=== PATIENT | female | born 1965 | race American Indian/Alaskan Native ===

== ENCOUNTER 2017-10-29 22:14 | Emergency (ER) | payer OTHER, MEDICAID ==
[2017-10-29] MEDS ORDERED: NACL 0.9% 500 ML 500 ML IV ONE (22:44)
[2017-10-29] MEDS ORDERED: ASPIRIN PO ONE (22:45)
[2017-10-29] MEDS ORDERED: TYLENOL PO STA (22:45)
[2017-10-29 23:18] LABS: Basophils % (Auto) 0.4 % (0.0-1.8); Eosinophils % (Auto) 0.5 % (0.0-4.3); Hematocrit 40.6 % (30.3-42.9); Hemoglobin 13.2 gm/dl (10.1-14.3); Lymphocytes # (Auto) 0.7 K/mm3 (1.2-5.4); Lymphocytes % (Auto) 9.8 % (13.4-35.0); Mean Corpuscular HGB Conc 32 % (30-34); Mean Corpuscular Hemoglobin 26 pg (28-32); Mean Corpuscular Volume 80 fl (79-97); Monocytes # (Auto) 1.1 K/mm3 (0.0-0.8); Monocytes % (Auto) 15.9 % (0.0-7.3); Red Blood Count 5.06 M/mm3 (3.65-5.03); Red Cell Distribution Width 14.9 % (13.2-15.2)
[2017-10-29 23:19] LABS: Platelet Count 342 K/mm3 (140-440)
--- NOTE | 2017-10-29 23:22 | Emergency Department Report ---
HPI - General Chief Complaint: Chest Pain Time Seen by Provider: 10/29/17 23:03 - HPI HPI: Room 7 Patient is a 52-year-old female presenting with a chief complaint of body aches and weakness. The patient states she awakened this morning her usual state of health. The patient states as the day progressed at work she developed aching all over and began feeling weak with diffuse body aches. Patient also complained of pain in her jaw and feeling cold. Patient states she became nauseous but never vomited. The patient does admit to cough is productive but is uncertain of the color. The patient does admit to rhinorrhea. Patient is to burning chest pain that began this afternoon. Patient is not aware of any sick contacts. Location: [See above] Duration: One day Quality: Aching Severity: Moderate Modifying factors: [see above] Context: [see above] Mode of transportation: [not driving] ED Past Medical Hx - Past Medical History Previous Medical History?: Yes Hx Seizures: Yes (sz like activty) - Surgical History Past Surgical History?: Yes Additional Surgical History: Heart transplant 2012. Defib but removed. tubal ligation - Family History Family history: no significant - Social History Smoking Status: Never Smoker Substance Use Type: None (denies illicit drug use) ED Review of Systems ROS: Stated complaint: FLU SYMPTOMS Other details as noted in HPI Constitutional: chills, fever ENT: other (rhinorrhea) Respiratory: cough Gastrointestinal: nausea. denies: vomiting Musculoskeletal: myalgia Physical Exam - Physical Exam Vital Signs: Vital Signs 10/29/17 22:40 Temperature 102.2 F H Pulse Rate 117 H Respiratory 20 Rate Blood Pressure 133/80 O2 Sat by Pulse 96 Oximetry Physical Exam: GENERAL: The patient is well-developed well-nourished female on a stretcher not appearing to be in acute distress. [] HEENT: Normocephalic. Atraumatic. Extraocular motions are intact. Patient has moist mucous membranes. NECK: Supple. Trachea midline CHEST/LUNGS: Clear to auscultation. There is no respiratory distress noted. HEART/CARDIOVASCULAR: Regular. There is tachycardia. There is no gallop rub or murmur. ABDOMEN: Abdomen is soft, nontender. Patient has normal bowel sounds. There is no abdominal distention. SKIN: There is no rash. There is no diaphoresis. NEURO: The patient is awake, alert, and oriented. The patient is cooperative. The patient has normal speech MUSCULOSKELETAL: There is no evidence of acute injury. ED Course Vital Signs 10/29/17 22:40 Temperature 102.2 F H Pulse Rate 117 H Respiratory 20 Rate Blood Pressure 133/80 O2 Sat by Pulse 96 Oximetry - Consultations Consultation #1: 10/29/17 23:[address] Childers at 22:57. Not a STEMI Consultation #2: 10/30/17 00:55 M[facility]in[facility] requested to contact Dr. Reyna, transplant surgery [facility] 10/30/17 01:[address] Fields ([place] transplant)-will accept patient in transfer ED Medical Decision Making - Lab Data Result diagrams: 10/29/17 22:55 10/29/17 22:55 Laboratory Tests 10/29/17 10/29/17 10/29/17 22:55 22:55 22:55 WBC 6.7 RBC 5.06 H Hgb 13.2 Hct 40.6 MCV 80 MCH 26 L MCHC 32 RDW 14.9 Plt Count 342 Lymph % (Auto) 9.8 L Stewart % (Auto) 15.9 H Eos % (Auto) 0.5 Baso % (Auto) 0.4 Lymph # 0.7 L Stewart # 1.1 H Eos # 0.0 Baso # 0.0 Seg Neutrophils % 73.4 H Seg Neutrophils # 4.9 PT 13.2 INR 0.95 VBG pH Sodium 139 Potassium 4.2 Chloride 101.2 Carbon Dioxide 24 Anion Gap 18 BUN 7 Creatinine 0.8 Estimated GFR > 60 BUN/Creatinine Ratio 9 Glucose 110 H Lactic Acid Calcium 8.8 Total Bilirubin 0.40 AST 19 ALT 16 Alkaline Phosphatase 104 Troponin T Total Protein 7.6 Albumin 4.0 Albumin/Globulin Ratio 1.1 Influenza A (Rapid) Influenza B (Rapid) 10/29/17 10/29/17 10/29/17 22:55 22:55 22:55 WBC RBC Hgb Hct MCV MCH MCHC RDW Plt Count Lymph % (Auto) Stewart % (Auto) Eos % (Auto) Baso % (Auto) Lymph # Stewart # Eos # Baso # Seg Neutrophils % Seg Neutrophils # PT INR VBG pH 7.419 Sodium Potassium Chloride Carbon Dioxide Anion Gap BUN Creatinine Estimated GFR BUN/Creatinine Ratio Glucose Lactic Acid 0.80 Calcium Total Bilirubin AST ALT Alkaline Phosphatase Troponin T < 0.010 Total Protein Albumin Albumin/Globulin Ratio Influenza A (Rapid) Influenza B (Rapid) 10/29/17 23:34 WBC RBC Hgb Hct MCV MCH MCHC RDW Plt Count Lymph % (Auto) Stewart % (Auto) Eos % (Auto) Baso % (Auto) Lymph # Stewart # Eos # Baso # Seg Neutrophils % Seg Neutrophils # PT INR VBG pH Sodium Potassium Chloride Carbon Dioxide Anion Gap BUN Creatinine Estimated GFR BUN/Creatinine Ratio Glucose Lactic Acid Calcium Total Bilirubin AST ALT Alkaline Phosphatase Troponin T Total Protein Albumin Albumin/Globulin Ratio Influenza A (Rapid) Negative Influenza B (Rapid) Negative - EKG Data -: EKG Interpreted by Me EKG shows normal: sinus rhythm Rate: tachycardia (113 bpm) - EKG Data When compared to previous EKG there are: previous EKG unavailable Interpretation: nonspecific ST-T wave jami (T-wave inversions in leads V2, V3, V4 ), other (right bundle branch block) - Radiology Data Radiology results: report reviewed (chest x-ray), image reviewed (chest x-ray) interpreted by me: Chest x-ray-no definite focal infiltrate, no pneumothorax FINAL REPORT EXAM: XR CHEST 1V AP HISTORY: possible Sepsis TECHNIQUE: upright single view chest PRIORS: None. FINDINGS: Cardiac and mediastinal contours are unremarkable. No focal pulmonary infiltrate is identified. No pleural fluid collection seen. Pulmonary vasculature is unremarkable. Sternotomy wires are noted. IMPRESSION: Negative single-view chest Transcribed By: Radha Dictated By: THOMAS MORRISON MD Electronically Authenticated By: THOMAS MORRISON MD Signed Date/Time: 10/29/171929 DD/ 29 TD/TT: 10/29/171929 - Differential Diagnosis influenza, pneumonia, bronchitis Critical care attestation.: If time is entered above; I have spent that time in minutes in the direct care of this critically ill patient, excluding procedure time. 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
[2017-10-29 23:27] LABS: INR 0.95 (0.87-1.13)
--- NOTE | 2017-10-29 23:33 | XRay Report ---
FINAL REPORT EXAM: XR CHEST 1V AP HISTORY: possible Sepsis TECHNIQUE: upright single view chest PRIORS: None. FINDINGS: Cardiac and mediastinal contours are unremarkable. No focal pulmonary infiltrate is identified. No pleural fluid collection seen. Pulmonary vasculature is unremarkable. Sternotomy wires are noted. IMPRESSION: Negative single-view chest
[2017-10-29 23:44] LABS: Alanine Aminotransferase 16 units/L (7-56); BUN/Creatinine Ratio 9; Blood Urea Nitrogen 7 mg/dL (7-17); Calcium 8.8 mg/dL (8.4-10.2); Hemolysis Index 1
[2017-10-30 05:00] VITALS: BP 131/81
== END 2017-10-30 04:50 | disposition other institution (70) ==
LOC: ED 22:14
DX: R53.1 Weakness (principal); R05 Cough; R50.9 Fever, unspecified; Z79.899 Other long term (current) drug therapy
CPT/HCPCS: 36415; 71045; 80053; 82140; 82805; 84484; 85025; 85610; 87040; 87400; 93005; 93010; 99285